=== PATIENT | female | born 1940 | race Caucasian/White ===

== ENCOUNTER 2018-09-19 09:31 | Emergency (ER) | payer MEDICARE ==
[~2018-09-19] VITALS: Ht 157.5 cm; Wt 56.7 kg
[~2018-09-19 09:31] MED LIST: COUMADIN1 MG PO; COUMADIN2 MG PO; DIGOXIN125 MCG PO; DILTIAZEM HCL30 MG PO; LANOXIN250 MC1 PO; LASIX40 MG PO; LEVOTHYROXINE100 MCG PO; LISINOPRIL2.5 MG PO; METFORMIN HCL500 MG PO; METOPROLOL TART25 MG PO; Z.0.COUMADIN2 MG PO; Z.0.METOPROLOL TART2 PO; Z.1.LEVOTHYROXINE100 PO
--- NOTE | 2018-09-19 10:41 | Diagnostic Imaging Report ---
EXAM: CHEST 2 VIEWS, PA and lateral DATE: 09/19/2018 Time stamp on exam: 10:05 AM INDICATION: Atrial fibrillation COMPARISON: None FINDINGS: LINES/TUBES: Triple lead cardiac device noted overlying the left chest. LUNGS: No consolidations or edema. PLEURA: Tiny right pleural effusion. HEART AND MEDIASTINUM: The heart is enlarged. BONES AND SOFT TISSUES: No acute findings. IMPRESSION: Cardiomegaly with adjacent tiny right pleural effusion. Signed by: Dr. Cliff Sainz DO on 09/19/2018 10:38 AM
[2018-09-19 11:19] LABS: BASOPHILS # (AUTO) 0.1 (0.0-0.1); BASOPHILS % 0.6 % (0.0-1.0); EOSINOPHILS # (AUTO) 0.1 (0.0-0.4); EOSINOPHILS % 1.7 % (0.0-6.0); HEMATOCRIT 39.9 % (34.2-44.1); HEMOGLOBIN 13.2 g/dL (12.0-16.0); LYMPHOCYTES # (AUTO) 1.6 (1.0-3.2); LYMPHOCYTES % 19.8 % (18.0-39.1); MEAN CORPUSCULAR HEMOGLOBIN 30.3 pg (28-32); MEAN CORPUSCULAR HGB CONC 33.1 g/dL (31-35); MEAN CORPUSCULAR VOLUME 91.7 fL (81-99); MONOCYTES # (AUTO) 0.8 (0.2-0.8); MONOCYTES % 10.2 % (4.4-11.3); NEUTROPHILS # (AUTO) 5.3 (2.1-6.9); NEUTROPHILS % 67.3 % (38.7-80.0); PLATELET COUNT 203 x10e3/uL (140-360); RED BLOOD COUNT 4.35 x10e6/uL (3.6-5.1); RED CELL DISTRIBUTION WIDTH 13.5 % (11.7-14.4)
[2018-09-19 11:26] LABS: INR 3.27; PROTHROMBIN TIME 34.1 seconds (11.9-14.5)
[2018-09-19 11:27] LABS: PARTIAL THROMBOPLASTIN TIME 42.9 seconds (23.8-35.5)
[2018-09-19 11:35] LABS: ALANINE AMINOTRANSFERASE 23 IU/L (0-55); ALBUMIN/GLOBULIN RATIO 1.2 (0.8-2.0); ALKALINE PHOSPHATASE 68 IU/L (40-150); ANION GAP 11.5 mmol/L (8-16); BLOOD UREA NITROGEN 10 mg/dL (7-26); BUN/CREATININE RATIO 14 (6-25); CALCIUM 9.8 mg/dL (8.4-10.2); CARBON DIOXIDE 29 mmol/L (22-29); CHLORIDE 101 mmol/L (98-107); CREATININE, SERUM 0.73 mg/dL (0.57-1.11); EST GLOMERULAR FILTRATION RATE > 60 ML/MIN (60-); GLUCOSE 249 mg/dL (74-118); POTASSIUM 4.5 mmol/L (3.5-5.1); SODIUM 137 mmol/L (136-145)
[2018-09-19 11:38] LABS: CREATINE KINASE 116 IU/L (29-168)
--- NOTE | 2018-09-19 12:06 | NUR ---
pt resting in bed with no s/s of distress. updated on poc/pending orders.
--- NOTE | 2018-09-19 12:13 | NUR ---
pt updated on pending dc home per dr. devine
[2018-09-19 12:20] VITALS: BP 126/62
== END 2018-09-19 12:36 | disposition home or self-care (01) ==
LOC: ER 09:31
DX: R07.89 Other chest pain (principal); R05 Cough; J20.9 Acute bronchitis, unspecified; I10 Essential (primary) hypertension; I48.91 Unspecified atrial fibrillation; E03.9 Hypothyroidism, unspecified; Z95.810 Presence of automatic (implantable) cardiac defibrillator
CPT/HCPCS: 36415; 71046; 80053; 82550; 82553; 84484; 85025; 85610; 85730; 93005; 99284

== ENCOUNTER → 2018-11-01 | Outpatient (CLI) | payer MEDICARE ==
[~2018-11-01] MED LIST changes: +AMIODARONE HCL200 MG; +FAMOTIDINE20 MG PO; +Guaifenesin/Dextromethorphan NG; +PREDNISONE20 MG PO; +TEMAZEPAM15 MG PO; +TESSALON PERLE100 MG PO; +TOPROL XL25 MG PO; +WARFARIN SODIUM2 MG PO
--- NOTE | 2018-11-01 08:43 | Diagnostic Imaging Report ---
EXAMINATION: CT scan of the chest without contrast. TECHNIQUE: Spiral CT images of the chest were performed from the lung apices to the level of the adrenal glands. No intravenous contrast was administered per referring physician request. Coronal and sagittal reformatted images were obtained. COMPARISON: Chest radiograph 09/19/2018 CLINICAL HISTORY:Dyspnea x3 months DISCUSSION: ABSENCE OF INTRAVENOUS CONTRAST DECREASES SENSITIVITY FOR DETECTION OF FOCAL LESIONS AND VASCULAR PATHOLOGY. LINES/TUBES: Left subclavian approach cardiac device body lies in the subcutaneous tissues of the left chest wall. Leads terminate in the right atrium, right ventricle, and coronary sinus LUNGS AND AIRWAYS: Mild biapical pleural-parenchymal scar. Groundglass opacities with interlobular septal thickening intermixed with areas of relative hyperlucency. Linear opacities in the lung bases, left greater than right, compatible with fibrotic change. 2 mm juxtapleural nodule right upper lobe series 3 image 43. 2 mm groundglass nodule right upper lobe series 3 image 46. 2 mm juxtapleural right lower lobe nodule series 3 image 87. 4 mm solid left apical nodule series 2 image 19. Calcified granuloma left upper lobe series 3 image 33. trachea, mainstem bronchi, and central lobar and segmental bronchi are patent without filling defect. PLEURA: Trace right pleural effusion. No left pleural effusion. No pneumothorax. HEART AND MEDIASTINUM: Visualized portions of the thyroid gland appear normal. The esophagus is patulous. Atherosclerotic calcification of the thoracic aorta, great vessel origins, and [place] coronary arteries. No ectasia or aneurysmal dilatation of the thoracic aorta. Pulmonary outflow tract is of normal caliber. Mild cardiomegaly without pericardial effusion. LYMPH NODES: Mildly prominent bilateral hilar lymph nodes. ABDOMEN: Visualized portions of the liver, spleen, pancreatic tail, and adrenal glands are unremarkable. BONES AND SOFT TISSUES: No osseous destructive lesions. Degenerative disc changes of the thoracic spine. IMPRESSION: Cardiomegaly with groundglass opacities and interlobular septal thickening compatible with interstitial edema. Mildly enlarged hilar lymph nodes are likely reactive. Peripheral and bibasilar probable age-related fibrotic changes. Trace right pleural effusion. Scattered bilateral pulmonary nodules measuring up to 4 mm in the left lung apex. Follow-up CT scan of the chest without contrast may be obtained in one year to assess for stability per Fleischner Society 2017 guidelines. Atherosclerotic vascular disease. Signed by: Dr. Hernán Peters M.D. on 11/01/2018 8:40 AM
== END ==
LOC: CT 07:54
PROVIDERS: ATTEND Internal Medicine
DX: R06.09 Other forms of dyspnea (principal)
CPT/HCPCS: 71250

== ENCOUNTER 2019-01-13 10:13 | Observation (INO) | payer MEDICARE ==
[~2019-01-13] VITALS: Ht 157.5 cm; Wt 57.6 kg
[~2019-01-13 10:13] MED LIST changes: -AMIODARONE HCL200 MG; -FAMOTIDINE20 MG PO; -Guaifenesin/Dextromethorphan NG; -PREDNISONE20 MG PO; -TEMAZEPAM15 MG PO; -TESSALON PERLE100 MG PO; -TOPROL XL25 MG PO; -WARFARIN SODIUM2 MG PO
--- OUTSIDE RECORDS SUMMARY | 2019-01-13 10:16 | XMS REPORT ---
Author Author [facility] Address Unknown Phone Unavailable Care Team Providers Care Lockstitch Shoulder Joiner Name Role Phone SHAWN LOMAS Unavailable Unavailable Tayo STEVENS Unavailable Unavailable Payers Payer Name Policy Type Policy Number Effective Date Expiration Date Problems This patient has no known problems. Allergies, Adverse Reactions, Alerts Allergy Name Allergy Type Status Severity Reaction(s) Onset Date Inactive Date Treating Clinician Comments No Known Contrast Allergies DA Active U 2002-08-21 00:00:00 No Known Drug Allergies DA Active U 2002-08-21 00:00:00 No Known Food Allergies DA Active U 2002-08-21 00:00:00 No Known Other Allergies DA Active U 2002-08-21 00:00:00 No Known Drug Intolerances DA Active U 2001-03-20 00:00:00 Medications This patient has no known medications. Results Test Description Test Time Test Comments Text Results Atomic Results Result Comments CT CHEST WO 2018-11-01 08:30:00 [facility] [address] [place], [place] [address] Patient Name: AMBER CLARK MR #: [id number] : 1940 Age/Sex: 78/F Req #: [id number] Adm Physician: Ordered by: SHAWN LOMAS MD Report #: [id number] Location: [place] Room/Bed: Procedure: [id number] CT/CT CHEST WO Exam Date: 11/01/18 Exam Time: 0815 REPORT STATUS: Signed EXAMINATION: CT scan of the chest without contrast. MEGHANN HNIQUE: Spiral CT images of the chest were performed from the lung apices to the level of the adrenal glands. No intravenous contrast was administered per referring physician request. Coronal and sagittal reformatted images were obtained. COMPARISON: Chest radiograph 09/19/2018 CLINICAL HISTORY:Dyspnea x3 months DISCUSSION: ABSENCE OF INTRAVENOUS CONTRAST DECREASES SENSITIVITY FOR DETECTION OF FOCAL LESIONS AND VASCULAR PATHOLOGY. LINES/TUBES: Left subclavian approach cardiac device body lies in the subcutaneous tissues of the left chest wall. Leads terminate in the right atrium, right ventricle, and coronary sinus LUNGS AND AIRWAYS: Mild biapical pleural-parenchymal scar. Groundglass opacities with interlobular septal thickening intermixed with areas of relative hyperlucency. Linear opacities in the lung bases, left greater than right, compatible with fibrotic change. 2 mm juxtapleural nodule right upper lobe series 3 image 43. 2 mm groundglass nodule right upper lobe series 3 image 46. 2 mm juxtapleural right lower lobe nodule series 3 image 87. 4 mm solid left apical nodule series 2 image 19. Calcified granuloma left upper lobe series 3 image 33. trachea, mainstem bronchi, and central lobar and segmental bronchi are patent without filling defect. PLEURA: Trace right pleural effusion. No left pleural effusion. No pneumothorax. HEART AND MEDIASTINUM: Visualized portions of the thyroid gland appear normal. The esophagus is patulous. Atherosclerotic calcification of the thoracic aorta, great vessel origins, and [place] coronary arteries. No ectasia or aneurysmal dilatation of the thoracic aorta. Pulmonary outflow tract is of normal caliber. Mild cardiomegaly without pericardial effusion. LYMPH NODES: Mildly prominent bilateral hilar lymph nodes. ABDOMEN: Visualized portions of the liver, spleen, pancreatic tail, and adrenal glands are unremarkable. BONES AND SOFT TISSUES: No osseous destructive lesions. Degenerative disc changes of the thoracic spine. IMPRESSION: Cardiomegaly with groundglass opacities and interlobular septal thickening compatible with interstitial edema. Mildly enlarged hilar lymph nodes are likely reactive. Peripheral and bibasilar probable age- related fibrotic changes. Trace right pleural effusion. Scattered bilateral pulmonary nodules measuring up to 4 mm in the left lung apex. Follow-up CT scan of the chest without contrast may be obtained in one year to assess for stability per Fleischner Society 2017 guidelines. Atherosclero tic vascular disease. Signed by: Dr. Bassem Hsu M.D. on 11/01/2018 8:40 AM Dictated By: BASSEM HSU MD 9 Transcribed By: NETO on 11/01/18839 COPY TO: SHAWN LOMAS MD CHEST 2 VIEWS 2018-09-19 10:37:00 [place] [address] Patient Name: AMBER CLARK MR #: [id number] : 1940 Age/Sex: 78/F Req #: [id number] Adm Physician: Ordered by: BUSTER STEVENS MD Report #: [id number] Location: ER Room/Bed: Procedure: [id number] DX/CHEST 2 VIEWS Exam Date: 09/19/18 Exam Time: 1018 REPORT STATUS: Signed EXAM: CHEST 2 VIEWS, PA and lateral DATE: 09/19/2018 Time stamp on exam: 10:05 AM INDICATION: Atrial fibrillation COMPARISON: None FINDINGS: LINES/TUBES: Triple lead cardiac device noted overlying the left chest. LUNGS: No consolidations or edema. PLEURA: Tiny right pleural effusion. HEART AND MEDIASTINUM: The heart is enlarged. BONES AND SOFT TISSUES: No acute findings. IMPRESSION: Cardiomegaly with adjacent tiny right pleural effusion. Signed by: Dr. Tiffany Sainz DO on 09/19/2018 10:38 AM Dictated By: TIFFANY SAINZ DO 1038 Transcribed By: NETO on 09/19/18 1038 COPY TO: BUSTER STEVENS MD SCR MAMM BILATERAL MARIA LUZ CAD DIGITAL 2018-06-06 11:55:17 - SCR MAMM BILATERAL MARIA LUZ CAD DIGITALBILATERAL DIGITAL SCREENING MAMMOGRAM 3D/2D WITH CAD: 06/06/2018CLINICAL: Asymptomatic. Digital breast tomosynthesis was performed in addition to routine CC and MLO views. Current mammographic images were evaluated by either a [employer] M-Vu or a [employer] ImageChecker CAD (computer aided detection system). Comparison is made to exams dated 03/27/2017 mammogram, mammogram, and 10/16/2014 mammogram - [facility]-. The tissue of both breasts is heterogeneously dense. This may lower the sensitivity of mammography. There are benign vascular calcifications in both breasts. No suspicious mass, architectural distortion, malignant type calcification, or lymph node abnormality detected. Breast architecture is stable compared to prior exams.IMPRESSION: BENIGNThere is no mammographic evidence of malignancy. Resume annual screening mammography in one year. Justin Fernandez M.D. ss/penrad:06/06/2018 11:55:17 Patching Machine Operator: Meryl MCGRAW, [facility]-FWletter sent: BIRADS 1-2 Normal Mammogram BI-RADS: 2 Benign
[2019-01-13 10:56] LABS: BASOPHILS # (AUTO) 0.1 (0.0-0.1); BASOPHILS % 0.6 % (0.0-1.0); EOSINOPHILS # (AUTO) 0.2 (0.0-0.4); EOSINOPHILS % 2.6 % (0.0-6.0); HEMATOCRIT 38.7 % (34.2-44.1); HEMOGLOBIN 12.5 g/dL (12.0-16.0); LYMPHOCYTES # (AUTO) 1.8 (1.0-3.2); LYMPHOCYTES % 20.5 % (18.0-39.1); MEAN CORPUSCULAR HEMOGLOBIN 29.8 pg (28-32); MEAN CORPUSCULAR HGB CONC 32.3 g/dL (31-35); MEAN CORPUSCULAR VOLUME 92.4 fL (81-99); MONOCYTES # (AUTO) 0.7 (0.2-0.8); MONOCYTES % 8.5 % (4.4-11.3); NEUTROPHILS # (AUTO) 5.8 (2.1-6.9); NEUTROPHILS % 67.4 % (38.7-80.0); PLATELET COUNT 204 x10e3/uL (140-360); RED BLOOD COUNT 4.19 x10e6/uL (3.6-5.1); RED CELL DISTRIBUTION WIDTH 12.9 % (11.7-14.4)
[2019-01-13 11:21] LABS: ALANINE AMINOTRANSFERASE 21 IU/L (0-55); ALBUMIN 3.7 g/dL (3.5-5.0); ALBUMIN/GLOBULIN RATIO 1.2 (0.8-2.0); ALKALINE PHOSPHATASE 56 IU/L (40-150); ANION GAP 14.3 mmol/L (8-16); BLOOD UREA NITROGEN 16 mg/dL (7-26); BUN/CREATININE RATIO 18 (6-25); CALCIUM 9.1 mg/dL (8.4-10.2); CARBON DIOXIDE 28 mmol/L (22-29); CHLORIDE 98 mmol/L (98-107); CREATINE KINASE 105 IU/L (29-168); CREATININE, SERUM 0.88 mg/dL (0.57-1.11); EST GLOMERULAR FILTRATION RATE > 60 ML/MIN (60-); GLUCOSE 368 mg/dL (74-118); POTASSIUM 4.3 mmol/L (3.5-5.1); SODIUM 136 mmol/L (136-145)
[2019-01-13 11:30] LABS: BILIRUBIN,URINE NEGATIVE (NEGATIVE); CLARITY,URINE CLEAR (CLEAR); COLOR,URINE YELLOW (YELLOW); KETONES,URINE NEGATIVE (NEGATIVE); LEUKOCYTE ESTERASE ,URINE NEGATIVE (NEGATIVE); NITRITE,URINE NEGATIVE (NEGATIVE); PROTEIN,URINE DIPSTICK TRACE (NEGATIVE); URINE UROBILINOGEN 0.2 mg/dL (0.2 - 1)
--- NOTE | 2019-01-13 11:32 | Diagnostic Imaging Report ---
EXAMINATION: CHEST 2 VIEWS INDICATION: Shortness of breath COMPARISON: Chest CT of 11/01/2018, chest radiograph of 09/19/2018 FINDINGS: LINES/TUBES:Left chest pacemaker device with leads in unchanged position. LUNGS:The lungs are moderately inflated. Mild biapical pleural thickening. Mild pulmonary interstitial edema. Mild subsegmental atelectasis at the left lung base. PLEURA:Trace bilateral pleural effusions. No pneumothorax. MEDIASTINUM:Cardiomediastinal silhouette is stably enlarged. Atherosclerotic calcifications of the thoracic aorta. BONES/SOFT TISSUES:No acute osseous injury. ABDOMEN:No free air under the diaphragm. IMPRESSION: Mild pulmonary interstitial edema and cardiomegaly. Trace bilateral pleural effusions. Mild subsegmental atelectasis at the left lung base. Signed by: Octavio Rowe MD on 01/13/2019 11:29 AM
[2019-01-13 11:42] LABS: BACTERIA,URINE RARE /HPF; EPITHELIAL CELLS,URINE FEW /LPF; RBC,URINE 0-5 /HPF (0-5); WBC,URINE (MAN) 0-5 /HPF (0-5)
[2019-01-13] MEDS ORDERED: INSULIN REGULAR, HUMAN 100 UNIT/1 ML 3ML VIAL SQ ONE (11:45)
[2019-01-13 11:50] LABS: INR 6.22; PROTHROMBIN TIME 55.9 seconds (11.9-14.5)
[2019-01-13 11:51] LABS: PARTIAL THROMBOPLASTIN TIME 56.2 seconds (23.8-35.5)
[2019-01-13] MEDS ORDERED: DEXTROSE 50% SYRINGE 50 ML IV PRN (12:15)
[2019-01-13] MEDS: INSULIN REGULAR, HUMAN 100 UNIT/1 ML 3ML VIAL SQ SCH ×3 (12:24→20:29)
[2019-01-13] MEDS ORDERED: PHYTONADIONE 10 MG/ML AMP SC ONE (12:30)
--- NOTE | 2019-01-13 12:39 | NUR ---
IV INFILTRATED AND DC'D INTACT. ATTEMPTS X2 UNSUCCESSFUL.
[2019-01-13] MEDS: ASPIRIN 325 MG TAB EC PO SCH (13:00)
--- NOTE | 2019-01-13 21:17 | NUR ---
REPOPRT ATTEMPTED Addendum: 01/13/19 at 2125 by AMCDONALD 1ST ATTEMPT AT REPORT WAS 2017
[2019-01-13 22:25] VITALS: BP 129/63
--- NOTE | 2019-01-13 22:25 | NUR ---
Patient arrived from ER via stretcher and was able to ambulate independently without assistance. Respirations are equal and unlabored, currently denies any SOB. Patient in NAD. POC discussed. She changed into own pajamas. Pt instructed to call for assistance as needed and verbalized understanding. Call bunch within reach.
[2019-01-13 22:30] VITALS: BP 129/63
[2019-01-13 22:44] VITALS: BP 129/63
[2019-01-13] MEDS ORDERED: TEMAZEPAM15 MG PO (23:23)
[2019-01-13] MEDS ORDERED: LISINOPRIL2.5 MG PO (23:23)
[2019-01-13 23:38] VITALS: BP 108/59
[2019-01-14] VITALS (8 sets, daily range): BP systolic 90–117; BP diastolic 53–67
--- NOTE | 2019-01-14 01:21 | NUR ---
Patient is resting in bed without any complaints voiced. Call bunch within reach.
--- NOTE | 2019-01-14 04:58 | NUR ---
H&P cc: sob HPI: 78yoF, PCP Dr.J. Cowan, developed sob and cough for few weeks; no cp. PMH: Systolic CHF, PAF, DM2, COPD, hypothyroidism, HTN, HLD, Nicotine dependence in remission, chronic resp failure on 2L/Min O2 at home PSHx: PPM Allergies; see emr Fh/SH; 30pk yrs; Meds; see MAR ROS: no f/c/s/N/V/D/LOTT/cp/vision changes/skin rash/back pain v/s; revd PE tired appearing anicteric ns1s2 mod bs soft nt nd no e/t a&ox3; guzmán skin dry n. affect labs/med; revd A/P: AECOPD Chronic resp failure Systolic CHF PAF DM2 Supratherapeutic inr Hypothyroidism HTN HLD PLAN: O2; Nebs; abx; Monitor fluid balance; HR controlled; Hba1c/lipids Prop: Mack Baxter MD, PhD.
[2019-01-14] MEDS ORDERED: ALBUTEROL/IPRATROPIUM 3 ML NEB NEB PRN (07:15)
[2019-01-14] MEDS: INSULIN REGULAR, HUMAN 100 UNIT/1 ML 3ML VIAL SQ SCH ×4 (07:56→20:41)
[2019-01-14] MEDS: LEVOTHYROXINE SODIUM 100 MCG TAB PO SCH (07:56)
[2019-01-14] MEDS: FAMOTIDINE 20 MG TAB PO SCH ×2 (07:56→16:54)
[2019-01-14 07:59] LABS: INR 2.67; PROTHROMBIN TIME 29.2 seconds (11.9-14.5)
[2019-01-14] MEDS ORDERED: POTASSIUM CHLORIDE 20 MEQ TAB CR PO PRN (08:15)
[2019-01-14 08:16] LABS: CREATINE KINASE MB 2.3 ng/mL (0-5.0)
[2019-01-14] MEDS ORDERED: FUROSEMIDE INJ 10 MG/ML 4 ML VIAL IV SCH ×2 (09:00)
[2019-01-14] MEDS ORDERED: FUROSEMIDE 40 MG TAB PO SCH (09:00)
[2019-01-14] MEDS: LISINOPRIL 2.5 MG TAB PO SCH (09:20)
[2019-01-14] MEDS: ASPIRIN 325 MG TAB EC PO SCH (09:20)
[2019-01-14] MEDS: METHYLPREDNISOLONE SOD SUCC 40 MG/ML VIAL 1ML IV SCH ×2 (09:20→20:39)
[2019-01-14] MEDS: HEPARIN SOD (PORCINE) 5,000 UNIT/ML VIAL SC SCH ×2 (09:21→20:40)
--- NOTE | 2019-01-14 15:41 | Consultation ---
DATE OF CONSULTATION: Pulmonary Consultation Patient of Dr. Sae Cowan, Dr. Cowart, and . HISTORY OF PRESENT ILLNESS: Charming, but unfortunate 78-year-old woman with a history of chronic atrial fibrillation, sick sinus syndrome with pacemaker, congestive heart failure, presumably cardiomyopathy, admitted with increasing shortness of breath. ALLERGIES: SHE IS ALLERGIC TO LEVAQUIN. MEDICATIONS: Include Lasix, Levoxyl, lisinopril, and Restoril. SOCIAL HISTORY: Ex-smoker, quit 30 years ago, smoked a pack a day, however, for 30 years. PAST SURGICAL HISTORY: Pacemaker has been implanted. No operations. FAMILY HISTORY: Noncontributory. PHYSICAL EXAMINATION: GENERAL: A well-developed white female, anxious. VITAL SIGNS: Temperature 97.2, pulse 70 and irregular, respirations 18, and blood pressure 117/67. HEAD: Normocephalic, atraumatic. EYES: Extraocular movements intact. LUNGS: Few rales bilaterally. HEART: Regular rhythm. ABDOMEN: Obese. EXTREMITIES: Nonedematous. IMPRESSION: Congestive heart failure. PLAN: Therapy of heart failure as per Dr. Cowart. Diuresis, afterload reduction, rate control. Recent CAT scan was consistent with interstitial edema, congestive heart failure. Pulmonary functions have revealed restrictive pattern. MD VICTORIA Pate/ABHINAVL /[id number]
--- NOTE | 2019-01-14 15:56 | Consultation ---
DATE OF CONSULTATION: 01/14/2019 Cardiology Consultation REQUESTING PHYSICIAN: Mack Baxter MD REASON FOR CONSULTATION: Congestive heart failure. HISTORY OF PRESENT ILLNESS: This is a 78-year-old woman with history of chronic systolic heart failure, status post BiV ICD, atrial fibrillation, chronic bronchitis, diabetes mellitus, hypothyroidism, who presents with complaints of shortness of breath. The patient reports she has had progressive shortness of breath since August with dyspnea on exertion with walking to the kitchen. She does endorse symptoms suggestive of orthopnea, but denies any chest pain, edema, or PND. REVIEW OF SYSTEMS: Negative except as per HPI. PAST MEDICAL HISTORY: 1. Chronic systolic heart failure, status post BiV ICD. 2. Atrial fibrillation. 3. Diabetes mellitus. 4. Hypothyroidism. 5. Chronic bronchitis. PAST SURGICAL HISTORY: Denies. SOCIAL HISTORY: Previously smoked one pack a day for 30 years, but quit 30 years ago. No alcohol or illicit drugs. FAMILY HISTORY: Noncontributory to current illness. ALLERGIES: LEVOFLOXACIN. MEDICATIONS: Please see medication list. PHYSICAL EXAMINATION: VITAL SIGNS: Temperature 96 degrees, pulse 97, respiratory rate 18, blood pressure 90/55, and oxygen saturation 97% on 2 L nasal cannula. GENERAL: Elderly woman, well developed, well nourished, in no acute distress. HEENT: Normocephalic, atraumatic. Pupils are equal. No scleral icterus. NECK: Supple. No thyromegaly or cervical lymphadenopathy. No carotid bruits. LUNGS: Clear to auscultation bilaterally. No wheezes or crackles , CARDIOVASCULAR: Normal rate, regular rhythm. No murmur. Normal S1, S2. ABDOMEN: Soft, nontender. EXTREMITIES: No edema. LABORATORY DATA: Sodium 136, potassium 4.3, chloride 98, CO2 of 28, BUN 16, and creatinine 0.88. Troponin 0.019. BNP 397.6. WBC 8.54, hemoglobin 12.5, hematocrit 38.7, and platelets 204. INR 2.67. Chest x-ray mild pulmonary interstitial edema and cardiomegaly. Trace bilateral pleural effusions. Mild subsegmental atelectasis at the left lung base. EKG, V-paced with PVCs. IMPRESSION: 1. Dwysm-rk-dwqiiwd systolic heart failure, last LVEF 40% to 45% at the office earlier this year. 2. Status post BiV ICD. 3. Atrial fibrillation. 4. Diabetes mellitus. 5. Hypothyroidism. 6. Chronic bronchitis. Continue home cardiac medications specifically continue low-dose lisinopril. Place the patient on intravenous diuretics. Watch creatinine closely. Monitor and replete electrolytes. Maintain the patient on telemetry while admitted. Resume the patient's warfarin as INR is now therapeutic. If necessary, warfarin can be held if procedures are planned. Thank you for this consult. We will continue to follow. Pamela Zhang MD ABS/MODL /[id number]
[2019-01-14] MEDS: FUROSEMIDE INJ 10 MG/ML 4 ML VIAL IV SCH (16:54)
[2019-01-14] MEDS: WARFARIN SOD 2 MG TAB PO SCH (16:55)
--- NOTE | 2019-01-14 17:21 | NUR ---
Dr Baxter notified of elevated sugar. extra 8 units added to evening dose for a total of 20 units.
[2019-01-14] MEDS ORDERED: WARFARIN SODIUM2 MG PO (19:24)
[2019-01-14] MEDS ORDERED: DIGOXIN125 MCG PO (19:24)
[2019-01-14] MEDS: TEMAZEPAM 15 MG CAP PO SCH (22:00)
[2019-01-15] VITALS (8 sets, daily range): BP systolic 94–139; BP diastolic 50–82
[2019-01-15] MEDS: LEVOTHYROXINE SODIUM 100 MCG TAB PO SCH (05:31)
--- NOTE | 2019-01-15 06:35 | NUR ---
IM- progress gillian O/N no events ROS: no f/c/s/N/V/D/LOTT/cp/vision changes/skin rash/back pain v/s; revd PE tired appearing anicteric ns1s2 mod bs soft nt nd no e/t a&ox3; guzmán skin dry n. affect labs/med; revd A/P: AECOPD Chronic resp failure Systolic CHF PAF DM2 Supratherapeutic inr Hypothyroidism HTN HLD PLAN: O2; Nebs; abx; Monitor fluid balance; HR controlled; Hba1c/lipids Prop: 01/15 supportive care; Hba1c/LDL ; inr improving; check inr. Mack Baxter MD, PhD.
[2019-01-15] MEDS ORDERED: GUAIFENESIN/DEXTROMETHORPHAN LIQD 5 ML UDC NG PRN (06:45)
[2019-01-15] MEDS ORDERED: ALBUTEROL/IPRATROPIUM 3 ML NEB NEB PRN (06:45)
[2019-01-15] MEDS: INSULIN REGULAR, HUMAN 100 UNIT/1 ML 3ML VIAL SQ SCH ×4 (07:47→20:52)
[2019-01-15] MEDS: HEPARIN SOD (PORCINE) 5,000 UNIT/ML VIAL SC SCH (07:47)
[2019-01-15] MEDS ORDERED: AMIODARONE HCL200 MG (07:48)
[2019-01-15] MEDS: METHYLPREDNISOLONE SOD SUCC 40 MG/ML VIAL 1ML IV SCH ×2 (08:54→20:52)
[2019-01-15] MEDS: FAMOTIDINE 20 MG TAB PO SCH ×2 (08:55→15:46)
[2019-01-15] MEDS: BENZONATATE 100 MG CAP PO SCH ×3 (08:55→20:52)
[2019-01-15] MEDS: LISINOPRIL 2.5 MG TAB PO SCH (08:55)
[2019-01-15] MEDS: FUROSEMIDE INJ 10 MG/ML 4 ML VIAL IV SCH ×2 (08:55→18:05)
[2019-01-15] MEDS: ASPIRIN 325 MG TAB EC PO SCH (08:55)
[2019-01-15 09:10] LABS: INR 1.53
--- NOTE | 2019-01-15 10:18 | Diagnostic Imaging Report ---
EXAM: CHEST 2 VIEWS DATE: 01/15/2019 8:45 AM INDICATION: Shortness of breath COMPARISON: 01/13/2019 FINDINGS: Left-sided multilead pacing device identified in stable position. The trachea is midline. There is blunting of the right costophrenic angle and a trace right pleural effusion is possible. There is no evidence for new large focal consolidation or pneumothorax. The cardiomediastinal silhouette is stable in appearance. No acute osseous abnormalities identified. IMPRESSION: No acute cardiopulmonary process or significant interval change identified from 01/13/2019. Signed by: Dr. Rodger Hermosillo MD on 01/15/2019 10:15 AM
[2019-01-15] MEDS: WARFARIN SOD 2 MG TAB PO SCH (18:05)
[2019-01-15 18:50] LABS: ANION GAP 15.9 mmol/L (8-16); CALCIUM 9.8 mg/dL (8.4-10.2); CREATININE, SERUM 1.01 mg/dL (0.57-1.11); POTASSIUM 3.9 mmol/L (3.5-5.1)
--- NOTE | 2019-01-15 19:30 | NUR ---
Patient is awake and alert visiting with family. Patient states she feels better today, denies any CP or SOB at this time. Reminded patient of strict I&O's and verbalized understanding. Call bunch within reach.
[2019-01-15] MEDS: TEMAZEPAM 15 MG CAP PO SCH (23:15)
--- NOTE | 2019-01-15 23:24 | Progress Note ---
DATE: 01/15/2019 Cardiology Progress Note SUBJECTIVE: The patient denies chest pain or shortness of breath. OBJECTIVE: VITAL SIGNS: Temperature 98 degrees, pulse 89, respiratory rate 20, blood pressure 116/62, and oxygen saturation 98% on room air. GENERAL: Awake, alert, in no acute distress. LUNGS: Clear to auscultation bilaterally. No wheezes or crackles. CARDIOVASCULAR: Normal rate, regular rhythm. No murmur. Normal S1, S2. ABDOMEN: Soft, nontender. EXTREMITIES: No edema. CARDIAC MEDICATIONS: Warfarin 2 mg p.o. daily, furosemide 40 mg IV b.i.d., Lexapro 2.5 mg p.o. daily, aspirin 325 mg p.o. daily, levothyroxine 100 mcg p.o. daily. LABORATORY DATA: Sodium 137, potassium 3.9, chloride 98, CO2 of 27, BUN 26, creatinine 1.01. Chest x-ray, no acute cardiopulmonary process or significant interval change. EKG, V-paced with PVCs. IMPRESSION: 1. Iaczo-jt-ofkxnot systolic heart failure. Last LVEF 40% to 45% at the office earlier this year. 2. Status post BiV ICD. 3. Atrial fibrillation. 4. Diabetes mellitus. 5. Hypothyroidism. 6. Chronic bronchitis. RECOMMENDATIONS: Continue current cardiac medications. Add metoprolol succinate given known systolic heart failure. Check BNP and basic metabolic panel in the morning. As she is clinically improved, she may be discharged home to follow up in the office for further diuresis as needed. Monitor creatinine. We will add Lasix to monitor and replete electrolytes. Maintain the patient on telemetry. Keep the patient on current dose of warfarin, currently subtherapeutic due to administration of vitamin K. Thank you for this consult. We will continue to follow. Pamela Zhang MD ABS/MODL /[id number]
[2019-01-16 00:09] VITALS: BP 131/65
[2019-01-16 04:44] VITALS: BP 121/55
[2019-01-16 05:35] LABS: BASOPHILS % 0.1 % (0.0-1.0); HEMATOCRIT 37.7 % (34.2-44.1); HEMOGLOBIN 12.5 g/dL (12.0-16.0); LYMPHOCYTES # (AUTO) 1.3 (1.0-3.2); LYMPHOCYTES % 8.3 % (18.0-39.1); MEAN CORPUSCULAR HEMOGLOBIN 29.6 pg (28-32); MEAN CORPUSCULAR HGB CONC 33.2 g/dL (31-35); MEAN CORPUSCULAR VOLUME 89.1 fL (81-99); MONOCYTES # (AUTO) 0.4 (0.2-0.8); MONOCYTES % 2.6 % (4.4-11.3); PLATELET COUNT 200 x10e3/uL (140-360); RED BLOOD COUNT 4.23 x10e6/uL (3.6-5.1); RED CELL DISTRIBUTION WIDTH 12.7 % (11.7-14.4)
[2019-01-16] MEDS ORDERED: TESSALON PERLE100 MG PO (05:49)
[2019-01-16] MEDS ORDERED: TOPROL XL25 MG PO (05:49)
[2019-01-16] MEDS ORDERED: FAMOTIDINE20 MG PO (05:49)
[2019-01-16] MEDS ORDERED: Guaifenesin/Dextromethorphan NG (05:49)
[2019-01-16] MEDS ORDERED: PREDNISONE20 MG PO (05:50)
--- NOTE | 2019-01-16 05:51 | NUR ---
D/C summary Principal dx: AECOPD Secondary Dx: Chronic resp failure Systolic CHF PAF DM2 Supratherapeutic inr Hypothyroidism HTN HLD PLAN: O2; Nebs; abx; Monitor fluid balance; HR controlled; Hba1c/lipids Prop: 01/15 supportive care; Hba1c/LDL ; inr improving; check inr. d/c home f/u pcp 1 week and Your mechanical maintenance 1 week; 2 weeks stable d/c>35mins Mack Baxter MD, PhD.
[2019-01-16] MEDS: LEVOTHYROXINE SODIUM 100 MCG TAB PO SCH (06:00)
[2019-01-16 06:06] LABS: ANION GAP 14.8 mmol/L (8-16); BLOOD UREA NITROGEN 22 mg/dL (7-26); BUN/CREATININE RATIO 26 (6-25); CALCIUM 9.5 mg/dL (8.4-10.2); CARBON DIOXIDE 29 mmol/L (22-29); CHLORIDE 98 mmol/L (98-107); CREATININE, SERUM 0.84 mg/dL (0.57-1.11); EST GLOMERULAR FILTRATION RATE > 60 ML/MIN (60-); GLUCOSE 262 mg/dL (74-118); POTASSIUM 3.8 mmol/L (3.5-5.1); SODIUM 138 mmol/L (136-145)
--- NOTE | 2019-01-16 07:08 | NUR ---
Walking rounds done and report given. Call bunch within reach.
--- NOTE | 2019-01-16 07:15 | NUR ---
Rcvd patient in report this am. Patient is asleep in bed at this time. No s/s of distress noted
[2019-01-16 07:32] VITALS: BP 107/67
[2019-01-16] MEDS: INSULIN REGULAR, HUMAN 100 UNIT/1 ML 3ML VIAL SQ SCH (08:33)
[2019-01-16] MEDS ORDERED: METOPROLOL SUCCINATE 25 MG TAB XL PO SCH (09:00)
[2019-01-16] MEDS ORDERED: PREDNISONE 20 MG TAB PO SCH (09:00)
[2019-01-16] MEDS: BENZONATATE 100 MG CAP PO SCH (09:19)
[2019-01-16] MEDS: FAMOTIDINE 20 MG TAB PO SCH (09:19)
[2019-01-16] MEDS: FUROSEMIDE INJ 10 MG/ML 4 ML VIAL IV SCH (09:19)
[2019-01-16] MEDS: ASPIRIN 325 MG TAB EC PO SCH (09:19)
[2019-01-16] MEDS: LISINOPRIL 2.5 MG TAB PO SCH (09:20)
[2019-01-16] MEDS ORDERED: LASIX40 MG PO (11:07)
[2019-01-16 11:26] VITALS: BP 137/64
--- NOTE | 2019-01-16 11:30 | NUR ---
IV removed at this time from left wrist. Pressure dressing applied
[2019-01-16 11:31] VITALS: BP 137/64
--- NOTE | 2019-01-16 11:43 | NUR ---
Patient discharged from facility to home. Patient assisted out via staff. Reviewed all discharge paperwork, follow up appts and RX's given. Education provided regarding coumadin and diet. Patient verbalized understanding
--- NOTE | 2019-01-16 11:49 | Diagnostic Imaging Report ---
CT of the chest, high-resolution, without contrast, 01/16/2019. History: CHF. Comparison: 11/01/2018. Technique: Multidetector CT scanning of the chest was performed from the level of the apices to the upper abdomen without contrast. Thin collimation scanning during the inspiratory and expiratory phases as well as in the prone position was performed. Sagittal and coronal multiplanar reformations were obtained. RADIATION DOSE: Total DLP: 797 mGy*cm Dose modulation, iterative reconstruction, and/or weight based adjustment of the mA/kV was utilized to reduce the radiation dose to as low as reasonably achievable. Discussion: Evaluation is limited without IV contrast. Chest: A left subclavian AICD is present. The heart is enlarged. The aorta and pulmonary vessels are normal in size. The thyroid is unremarkable. Scattered subcentimeter mediastinal and hilar nodes are unchanged. The central airways are patent. There is biapical pleural thickening with mild bilateral upper lobe scarring. Subsegmental atelectasis and scattered areas of peripheral scarring are present in both lung bases. A small right pleural effusion is present. Scattered tiny noncalcified pulmonary nodules are unchanged, measuring up to 4 mm in the left apex. Expiration scan demonstrates patchy areas of mild air trapping bilaterally. There is no evidence of consolidation, bronchiectasis, honeycombing, or cysts. Limited evaluation of the upper abdomen shows normal adrenal glands. Bones and soft tissues: No acute abnormality. Degenerative changes are present throughout the thoracic spine. IMPRESSION: No acute abnormality. Cardiomegaly, small right pleural effusion, stable tiny pulmonary nodules, and stable mild fibrotic changes. Signed by: Yasmani Simmons on 01/16/2019 11:46 AM
== END 2019-01-16 11:43 | disposition home or self-care (01) ==
LOC: ER 10:13 → ERHOLD 13:43 → IMCU 22:34
PROVIDERS: ADMIT Internal Medicine; ATTEND Internal Medicine
DX: J44.1 Chronic obstructive pulmonary disease with (acute) exacerbation (principal); I11.0 Hypertensive heart disease with heart failure; I50.22 Chronic systolic (congestive) heart failure; I48.0 Paroxysmal atrial fibrillation; Z79.01 Long term (current) use of anticoagulants; E11.9 Type 2 diabetes mellitus without complications; E03.9 Hypothyroidism, unspecified; E78.5 Hyperlipidemia, unspecified; R79.1 Abnormal coagulation profile
CPT/HCPCS: 36415 ×4; 71046 ×2; 71250; 80048 ×2; 80053; 80061; 81001; 82550 ×2; 82553 ×2; 82948 ×4; 83036; 83735; 83880 ×2; 84443; 84484 ×2; 85025 ×2; 85610 ×3; 85730; 93005; 94640; 97116; 97161; 99284; G0378 ×4; J1644; J1940 ×4; J2920 ×2; J3430; J7512

== ENCOUNTER → 2019-06-04 | Outpatient (CLI) | payer MEDICARE ==
[~2019-06-04] MED LIST changes: +AMIODARONE HCL200 MG; +FAMOTIDINE20 MG PO; +Guaifenesin/Dextromethorphan NG; +PREDNISONE20 MG PO; +TEMAZEPAM15 MG PO; +TESSALON PERLE100 MG PO; +TOPROL XL25 MG PO; +WARFARIN SODIUM2 MG PO
--- NOTE | 2019-06-04 11:08 | Diagnostic Imaging Report ---
Chest, 2 views, 06/04/2019. History: Shortness of breath. Comparison: 01/15/2019. Findings: The cardiomediastinal silhouette and pulmonary vasculature are prominent. There is biapical pleural thickening. There is dense opacification of the right mid and lower lung with complete obscuration of the right heart border and hemidiaphragm, with blunting of the right costophrenic sulcus. Linear opacities are present in the left lung base. There is no left consolidation or effusion. Left subclavian biventricular AICD is unchanged in appearance. There are no acute osseous or soft tissue abnormalities. Impression: Mild cardiomegaly, vascular congestion, and increased right lower lobe atelectasis/effusion. Signed by: Yasmani Simmons on 06/04/2019 11:06 AM
== END ==
LOC: RAD 10:40
PROVIDERS: ATTEND Internal Medicine
DX: R06.02 Shortness of breath (principal)
CPT/HCPCS: 71046

== ENCOUNTER 2020-11-05 11:33 | Emergency (ER) | payer MEDICARE ==
[~2020-11-05] VITALS: Ht 157.5 cm; Wt 57.6 kg
[2020-11-05] MEDS ORDERED: SODIUM CHLORIDE 0.9% 1000ML 250 ML IV STA (11:54)
[2020-11-05] MEDS ORDERED: ONDANSETRON HCL INJ 2MG/ML 2ML 2 MG/ML VIAL IV STA (11:54)
[2020-11-05] MEDS ORDERED: DICYCLOMINE HCL 20 MG/2 ML VIAL IM ONE (12:00)
[2020-11-05 12:12] LABS: BASOPHILS % 0.2 % (0.0-1.0); EOSINOPHILS % 0.2 % (0.0-6.0); HEMATOCRIT 36.5 % (34.2-44.1); HEMOGLOBIN 11.8 g/dL (12.0-16.0); LYMPHOCYTES # (AUTO) 1.6 (1.0-3.2); LYMPHOCYTES % 11.9 % (18.0-39.1); MEAN CORPUSCULAR HEMOGLOBIN 29.9 pg (28-32); MEAN CORPUSCULAR HGB CONC 32.3 g/dL (31-35); MEAN CORPUSCULAR VOLUME 92.4 fL (81-99); MONOCYTES # (AUTO) 1.4 (0.2-0.8); MONOCYTES % 10.8 % (4.4-11.3); NEUTROPHILS # (AUTO) 10.1 (2.1-6.9); NEUTROPHILS % 76.4 % (38.7-80.0); PLATELET COUNT 150 x10e3/uL (140-360); RED BLOOD COUNT 3.95 x10e6/uL (3.6-5.1); RED CELL DISTRIBUTION WIDTH 13.8 % (11.7-14.4)
[2020-11-05 12:43] LABS: ALBUMIN 3.4 g/dL (3.5-5.0); ALBUMIN/GLOBULIN RATIO 1.1 (0.8-2.0); ANION GAP 15.1 mmol/L (8-16); CALCIUM 8.6 mg/dL (8.4-10.2); CREATININE, SERUM 1.07 mg/dL (0.57-1.11); POTASSIUM 3.1 mmol/L (3.5-5.1)
[2020-11-05] MEDS ORDERED: IOPAMIDOL 370 MG/ML 200 ML INFUS..BTL INJ ONE (13:49)
[2020-11-05] MEDS ORDERED: SODIUM CHLORIDE 0.9% 50ML 50 ML ONE (13:49)
[2020-11-05] MEDS ORDERED: AUGMENTIN 875-1 EACH PO (14:19)
[2020-11-05] MEDS ORDERED: POTASSIUM CHLORIDE 20 MEQ TAB CR PO ONE (14:30)
== END 2020-11-05 15:05 | disposition home or self-care (01) ==
LOC: ER 11:54
DX: R14.0 Abdominal distension (gaseous) (principal); A09 Infectious gastroenteritis and colitis, unspecified; I10 Essential (primary) hypertension; E11.9 Type 2 diabetes mellitus without complications; I50.9 Heart failure, unspecified; I48.91 Unspecified atrial fibrillation; I25.10 Atherosclerotic heart disease of native coronary artery without angina pectoris; E03.9 Hypothyroidism, unspecified; Z95.810 Presence of automatic (implantable) cardiac defibrillator
CPT/HCPCS: 36415; 74177; 80053; 85025; 99284; J0500; J2405; J7030; Q9967

== ENCOUNTER 2022-07-12 09:39 | Inpatient (IN) | payer MEDICARE ==
[~2022-07-12] VITALS: Ht 157.5 cm; Wt 57.6 kg
[~2022-07-12 09:39] MED LIST changes: +AUGMENTIN 875-1 EACH PO
[2022-07-12] MEDS ORDERED: SODIUM CHLORIDE 0.9% 1000ML 1,000 ML IV SCH (10:00)
[2022-07-12 10:02] LABS: BASOPHILS # (AUTO) 0.1 (0.0-0.1); BASOPHILS % 0.6 % (0.0-1.0); EOSINOPHILS % 0.1 % (0.0-6.0); HEMATOCRIT 34.7 % (34.2-44.1); LYMPHOCYTES # (AUTO) 1.2 (1.0-3.2); LYMPHOCYTES % 14.9 % (18.0-39.1); MEAN CORPUSCULAR HEMOGLOBIN 30.7 pg (28-32); MEAN CORPUSCULAR HGB CONC 31.7 g/dL (31-35); MEAN CORPUSCULAR VOLUME 96.9 fL (81-99); MONOCYTES % 12.5 % (4.4-11.3); NEUTROPHILS # (AUTO) 5.8 (2.1-6.9); NEUTROPHILS % 70.1 % (38.7-80.0); PLATELET COUNT 161 x10e3/uL (140-360); RED BLOOD COUNT 3.58 x10e6/uL (3.6-5.1); RED CELL DISTRIBUTION WIDTH 14.8 % (11.7-14.4)
[2022-07-12 10:29] LABS: ALBUMIN 3.9 g/dL (3.5-5.0); ALBUMIN/GLOBULIN RATIO 1.2 (0.8-2.0); CALCIUM 9.2 mg/dL (8.4-10.2); CREATININE, SERUM 1.9 mg/dL (0.57-1.11)
[2022-07-12] MEDS ORDERED: DOXYCYCLINE HYCLATE TABLET 100 MG TAB PO ONE (10:45)
[2022-07-12 11:46] LABS: ANION GAP 17.1 mmol/L (8-16); CALCIUM 9.3 mg/dL (8.4-10.2); CREATININE, SERUM 1.75 mg/dL (0.57-1.11)
[2022-07-12 11:49] LABS: POTASSIUM 7.1 mmol/L (3.5-5.1)
[2022-07-12] MEDS ORDERED: DEXTROSE 50% SYRINGE 50 ML IV STA (11:49)
[2022-07-12] MEDS ORDERED: ALBUTEROL SULF 0.083% NEB SOLN 3 ML NEB NEB STA (11:49)
[2022-07-12] MEDS ORDERED: SODIUM BICARBONATE 8.4% INJ 50 ML SYR IV STA (11:49)
[2022-07-12] MEDS ORDERED: SOD POLYSTYRENE SULFONATE SUSP 15 GM/60 ML BTL PO ONE (12:00)
[2022-07-12] MEDS ORDERED: INSULIN REGULAR, HUMAN 100 UNIT/1 ML IV ONE (12:00)
[2022-07-12] MEDS ORDERED: CALCIUM GLUCONATE 10% INJ 13.95 MEQ in SODIUM CHLORIDE 0.9% 100 ML IV ONE ×4 (12:00)
[2022-07-12] MEDS ORDERED: SODIUM CHLORIDE 0.9% 100 ML ONE (12:25)
[2022-07-12 16:29] VITALS: BP 120/38
[2022-07-12 16:38] VITALS: BP 120/38
[2022-07-12 16:39] VITALS: BP 120/38
[2022-07-12] MEDS ORDERED: TEMAZEPAM 15 MG CAP PO PRN (18:15)
[2022-07-12] MEDS ORDERED: HYDRALAZINE HCL 20 MG/ML VIAL IV PRN (18:15)
[2022-07-12] MEDS ORDERED: ONDANSETRON HCL INJ 2MG/ML 2ML 2 MG/ML VIAL IV PRN (18:15)
[2022-07-12] MEDS ORDERED: POLYETHYLENE GLYCOL 3350 17 GM PACK PO PRN (18:15)
[2022-07-12 18:37] LABS: CHOL/HDL RATIO 2.6 (3.0-3.6)
[2022-07-12 18:55] LABS: ANION GAP 17.9 mmol/L (8-16); CALCIUM 10.4 mg/dL (8.4-10.2); CREATININE, SERUM 1.66 mg/dL (0.57-1.11); POTASSIUM 5.9 mmol/L (3.5-5.1)
[2022-07-12 18:57] LABS: THYROID STIMULATING HORMONE 0.141 uIU/mL (0.350-4.940)
[2022-07-12] MEDS: ALBUTEROL SULF 0.083% NEB SOLN 3 ML NEB NEB SCH (19:00)
[2022-07-12] MEDS: IPRATROPIUM BROMIDE 0.02% 2.5 ML NEB NEB SCH (19:00)
[2022-07-12] MEDS ORDERED: FUROSEMIDE INJ 10 MG/ML 4 ML VIAL IV ONE (20:00)
[2022-07-12 20:19] VITALS: BP 107/43
[2022-07-12 21:45] VITALS: BP 128/48
[2022-07-13] VITALS (8 sets, daily range): BP systolic 84–115; BP diastolic 36–65
[2022-07-13] MEDS: GUAIFENESIN/CODEINE 5 ML LIQD PO PRN ×3 (00:13→22:30)
[2022-07-13] MEDS: ACETAMINOPHEN 325 MG TAB PO PRN ×2 (01:13→16:00)
[2022-07-13 05:35] LABS: BASOPHILS % 0.3 % (0.0-1.0); EOSINOPHILS % 0.2 % (0.0-6.0); HEMATOCRIT 28.7 % (34.2-44.1); HEMOGLOBIN 9.1 g/dL (12.0-16.0); LYMPHOCYTES # (AUTO) 1.4 (1.0-3.2); MEAN CORPUSCULAR HEMOGLOBIN 30.3 pg (28-32); MEAN CORPUSCULAR HGB CONC 31.7 g/dL (31-35); MEAN CORPUSCULAR VOLUME 95.7 fL (81-99); MONOCYTES # (AUTO) 1.1 (0.2-0.8); NEUTROPHILS % 61.3 % (38.7-80.0); PLATELET COUNT 134 x10e3/uL (140-360); RED CELL DISTRIBUTION WIDTH 14.6 % (11.7-14.4)
[2022-07-13 06:03] LABS: ANION GAP 12.9 mmol/L (8-16); CALCIUM 9.3 mg/dL (8.4-10.2); CREATININE, SERUM 1.51 mg/dL (0.57-1.11); POTASSIUM 4.9 mmol/L (3.5-5.1)
[2022-07-13] MEDS: ALBUTEROL SULF 0.083% NEB SOLN 3 ML NEB NEB SCH ×4 (06:30→18:50)
[2022-07-13] MEDS: IPRATROPIUM BROMIDE 0.02% 2.5 ML NEB NEB SCH ×4 (06:30→18:50)
[2022-07-13 07:24] LABS: LYMPHOCYTES % (MANUAL) 15 % (19-48); MONOCYTES % (MANUAL) 12 % (3.4-9.0); NEUTROPHILS % (MANUAL) 73 % (40-74)
[2022-07-13 07:25] LABS: PLATELET ESTIMATE SLIGHTLY DECREASED; PLATELET MORPHOLOGY COMMENT NORMAL; RBC MORPHOLOGY COMMENT NORMAL
[2022-07-13] MEDS: METOPROLOL SUCCINATE 25 MG TAB XL PO SCH (09:00)
[2022-07-13] MEDS ORDERED: LISINOPRIL 2.5 MG TAB PO SCH (09:00)
[2022-07-13] MEDS: FUROSEMIDE 40 MG TAB PO SCH ×2 (09:00→15:49)
[2022-07-13] MEDS: DOCUSATE SODIUM 100 MG CAP PO SCH ×2 (09:20→15:54)
[2022-07-13] MEDS: BENZONATATE 100 MG CAP PO SCH ×3 (09:21→22:22)
[2022-07-13] MEDS: DIGOXIN 0.125 MG TAB PO SCH (09:21)
[2022-07-13 09:31] LABS: INR 2.51; PROTHROMBIN TIME 27.5 seconds (11.9-14.5)
[2022-07-13] MEDS: LEVOTHYROXINE SODIUM 100 MCG TAB PO SCH (09:31)
[2022-07-13] MEDS: FAMOTIDINE 20 MG TAB PO SCH (15:50)
[2022-07-13] MEDS ORDERED: TIMOPTIC 0.5%1 EACH OU (17:28)
[2022-07-13] MEDS ORDERED: LEXAPRO10 MG PO (17:28)
[2022-07-13] MEDS ORDERED: CRESTOR10 MG PO (17:28)
[2022-07-13] MEDS ORDERED: BRIMONIDINE TART5 ML OP (17:28)
[2022-07-13] MEDS ORDERED: SPIRONOLACTONE25 MG PO (17:28)
[2022-07-13] MEDS: WARFARIN SOD 2 MG TAB PO SCH (17:33)
[2022-07-13 17:53] LABS: CLARITY,URINE SL CLOUDY (CLEAR); COLOR,URINE YELLOW (YELLOW); KETONES,URINE NEGATIVE (NEGATIVE); LEUKOCYTE ESTERASE ,URINE TRACE (NEGATIVE); NITRITE,URINE NEGATIVE (NEGATIVE); PROTEIN,URINE DIPSTICK 2+ (NEGATIVE); URINE UROBILINOGEN 0.2 mg/dL (0.2 - 1)
[2022-07-13 18:07] LABS: AMORPHOUS SEDIMENT,URINE MODERATE (FEW); BACTERIA,URINE MODERATE /HPF; RBC,URINE 21-50 /HPF (0-5)
[2022-07-13] MEDS: TEMAZEPAM 15 MG CAP PO SCH (22:22)
[2022-07-13] MEDS: SIMVASTATIN 20 MG TAB PO SCH (22:22)
[2022-07-13] MEDS: FUROSEMIDE 20 MG TAB PO SCH (22:30)
[2022-07-14] VITALS (8 sets, daily range): BP systolic 96–159; BP diastolic 48–70
[2022-07-14] MEDS: IPRATROPIUM BROMIDE 0.02% 2.5 ML NEB NEB SCH ×4 (03:20→19:20)
[2022-07-14] MEDS: ALBUTEROL SULF 0.083% NEB SOLN 3 ML NEB NEB SCH ×4 (03:20→19:20)
[2022-07-14] MEDS: LEVOTHYROXINE SODIUM 100 MCG TAB PO SCH (05:50)
[2022-07-14 06:05] LABS: BASOPHILS % 0.4 % (0.0-1.0); EOSINOPHILS # (AUTO) 0.1 (0.0-0.4); HEMOGLOBIN 9.3 g/dL (12.0-16.0); LYMPHOCYTES # (AUTO) 1.6 (1.0-3.2); LYMPHOCYTES % 19.6 % (18.0-39.1); MEAN CORPUSCULAR HEMOGLOBIN 30.9 pg (28-32); MEAN CORPUSCULAR HGB CONC 32.1 g/dL (31-35); MEAN CORPUSCULAR VOLUME 96.3 fL (81-99); MONOCYTES # (AUTO) 1.1 (0.2-0.8); NEUTROPHILS # (AUTO) 5.5 (2.1-6.9); NEUTROPHILS % 65.8 % (38.7-80.0); PLATELET COUNT 141 x10e3/uL (140-360); RED BLOOD COUNT 3.01 x10e6/uL (3.6-5.1); RED CELL DISTRIBUTION WIDTH 14.5 % (11.7-14.4)
[2022-07-14 06:42] LABS: ALBUMIN/GLOBULIN RATIO 1.1 (0.8-2.0); ANION GAP 14.2 mmol/L (8-16); CALCIUM 8.9 mg/dL (8.4-10.2); CREATININE, SERUM 1.27 mg/dL (0.57-1.11); POTASSIUM 4.2 mmol/L (3.5-5.1)
[2022-07-14] MEDS: METOPROLOL SUCCINATE 25 MG TAB XL PO SCH (09:00)
[2022-07-14 09:14] LABS: LYMPHOCYTES % (MANUAL) 20 % (19-48); MONOCYTES % (MANUAL) 19 % (3.4-9.0); NEUTROPHILS % (MANUAL) 60 % (40-74); PLATELET ESTIMATE ADEQUATE; PLATELET MORPHOLOGY COMMENT NORMAL; RBC MORPHOLOGY COMMENT NORMAL
[2022-07-14] MEDS ORDERED: METHYLPREDNISOLONE SOD SUCC 40 MG/ML VIAL 1ML IV ONE (09:15)
[2022-07-14] MEDS: ESCITALOPRAM OXALATE 10 MG TAB PO SCH (09:25)
[2022-07-14] MEDS: BENZONATATE 100 MG CAP PO SCH ×3 (09:25→21:00)
[2022-07-14] MEDS: DOCUSATE SODIUM 100 MG CAP PO SCH ×2 (09:25→17:00)
[2022-07-14] MEDS: DIGOXIN 0.125 MG TAB PO SCH (09:25)
[2022-07-14] MEDS: FAMOTIDINE 20 MG TAB PO SCH ×2 (09:25→17:26)
[2022-07-14] MEDS: FUROSEMIDE 20 MG TAB PO SCH (09:25)
[2022-07-14] MEDS ORDERED: ONDANSETRON HCL 4 MG ORAL DISINTEGRATING TAB PO PRN (11:00)
[2022-07-14] MEDS: WARFARIN SOD 2 MG TAB PO SCH (17:28)
[2022-07-14] MEDS: SIMVASTATIN 20 MG TAB PO SCH (21:00)
[2022-07-14] MEDS: TEMAZEPAM 15 MG CAP PO SCH (21:00)
[2022-07-14] MEDS ORDERED: ENTRESTO 24 MG1 EACH (22:12)
[2022-07-14] MEDS ORDERED: GLIPIZIDE5 MG PO (22:12)
[2022-07-15] VITALS (8 sets, daily range): BP systolic 96–125; BP diastolic 46–60
[2022-07-15] MEDS: IPRATROPIUM BROMIDE 0.02% 2.5 ML NEB NEB SCH ×4 (00:20→19:25)
[2022-07-15] MEDS: ALBUTEROL SULF 0.083% NEB SOLN 3 ML NEB NEB SCH ×4 (00:20→19:25)
[2022-07-15] MEDS: LEVOTHYROXINE SODIUM 100 MCG TAB PO SCH (06:05)
[2022-07-15] MEDS: GUAIFENESIN/CODEINE 5 ML LIQD PO PRN ×2 (06:14→14:40)
[2022-07-15 07:06] LABS: BASOPHILS % 0.2 % (0.0-1.0); HEMATOCRIT 29.2 % (34.2-44.1); HEMOGLOBIN 9.5 g/dL (12.0-16.0); LYMPHOCYTES % 16.5 % (18.0-39.1); MEAN CORPUSCULAR HEMOGLOBIN 30.4 pg (28-32); MEAN CORPUSCULAR HGB CONC 32.5 g/dL (31-35); MEAN CORPUSCULAR VOLUME 93.6 fL (81-99); MONOCYTES # (AUTO) 0.6 (0.2-0.8); MONOCYTES % 10.2 % (4.4-11.3); NEUTROPHILS # (AUTO) 4.4 (2.1-6.9); NEUTROPHILS % 72.6 % (38.7-80.0); PLATELET COUNT 155 x10e3/uL (140-360); RED BLOOD COUNT 3.12 x10e6/uL (3.6-5.1); RED CELL DISTRIBUTION WIDTH 13.8 % (11.7-14.4)
[2022-07-15 07:10] LABS: INR 3.11; PROTHROMBIN TIME 32.4 seconds (11.9-14.5)
[2022-07-15 07:23] LABS: ALBUMIN/GLOBULIN RATIO 0.9 (0.8-2.0); ANION GAP 13.3 mmol/L (8-16); CALCIUM 8.9 mg/dL (8.4-10.2); CREATININE, SERUM 0.97 mg/dL (0.57-1.11); POTASSIUM 4.3 mmol/L (3.5-5.1)
[2022-07-15] MEDS: DOCUSATE SODIUM 100 MG CAP PO SCH ×2 (09:00→17:00)
[2022-07-15] MEDS: FAMOTIDINE 20 MG TAB PO SCH ×2 (09:08→17:06)
[2022-07-15] MEDS: FUROSEMIDE 20 MG TAB PO SCH (09:08)
[2022-07-15] MEDS: BENZONATATE 100 MG CAP PO SCH ×3 (09:08→21:10)
[2022-07-15] MEDS: AZITHROMYCIN 250 MG TAB PO SCH (09:08)
[2022-07-15] MEDS: ESCITALOPRAM OXALATE 10 MG TAB PO SCH (09:08)
[2022-07-15] MEDS: METOPROLOL SUCCINATE 25 MG TAB XL PO SCH (09:09)
[2022-07-15] MEDS: DIGOXIN 0.125 MG TAB PO SCH (09:09)
[2022-07-15 10:44] LABS: LYMPHOCYTES % (MANUAL) 10 % (19-48); MONOCYTES % (MANUAL) 4 % (3.4-9.0); NEUTROPHILS % (MANUAL) 86 % (40-74); PLATELET ESTIMATE ADEQUATE; PLATELET MORPHOLOGY COMMENT NORMAL; RBC MORPHOLOGY COMMENT NORMAL
[2022-07-15] MEDS: WARFARIN SOD 2 MG TAB PO SCH (17:00)
[2022-07-15] MEDS: SIMVASTATIN 20 MG TAB PO SCH (21:09)
[2022-07-15] MEDS: TEMAZEPAM 15 MG CAP PO SCH (21:10)
[2022-07-15] MEDS: ACETAMINOPHEN 325 MG TAB PO PRN (21:51)
[2022-07-16] MEDS: IPRATROPIUM BROMIDE 0.02% 2.5 ML NEB NEB SCH ×4 (00:30→19:35)
[2022-07-16] MEDS: ALBUTEROL SULF 0.083% NEB SOLN 3 ML NEB NEB SCH ×4 (00:30→19:35)
[2022-07-16 01:12] VITALS: BP 120/72
[2022-07-16 06:00] VITALS: BP 104/52
[2022-07-16] MEDS: LEVOTHYROXINE SODIUM 100 MCG TAB PO SCH (06:05)
[2022-07-16 07:34] VITALS: BP 113/51
[2022-07-16 08:24] VITALS: BP 113/51
[2022-07-16] MEDS: BENZONATATE 100 MG CAP PO SCH ×3 (08:32→20:57)
[2022-07-16] MEDS: DOCUSATE SODIUM 100 MG CAP PO SCH ×2 (08:32→16:59)
[2022-07-16] MEDS: AZITHROMYCIN 250 MG TAB PO SCH (08:32)
[2022-07-16] MEDS: DIGOXIN 0.125 MG TAB PO SCH (08:32)
[2022-07-16] MEDS: FAMOTIDINE 20 MG TAB PO SCH ×2 (08:33→16:59)
[2022-07-16] MEDS: FUROSEMIDE 20 MG TAB PO SCH (08:33)
[2022-07-16] MEDS: ESCITALOPRAM OXALATE 10 MG TAB PO SCH (08:33)
[2022-07-16] MEDS: METOPROLOL SUCCINATE 25 MG TAB XL PO SCH (08:33)
[2022-07-16 12:04] VITALS: BP 96/64
[2022-07-16] MEDS: GUAIFENESIN/CODEINE 5 ML LIQD PO PRN (14:00)
[2022-07-16 15:00] LABS: INR 3.41; PROTHROMBIN TIME 34.7 seconds (11.9-14.5)
[2022-07-16] MEDS: ACETAMINOPHEN 325 MG TAB PO PRN (15:19)
[2022-07-16 16:12] VITALS: BP 113/49
[2022-07-16] MEDS: SIMVASTATIN 20 MG TAB PO SCH (20:57)
[2022-07-16] MEDS: TEMAZEPAM 15 MG CAP PO SCH (20:57)
[2022-07-17] VITALS (7 sets, daily range): BP systolic 104–125; BP diastolic 45–74
[2022-07-17] MEDS: ALBUTEROL SULF 0.083% NEB SOLN 3 ML NEB NEB SCH ×4 (01:00→19:15)
[2022-07-17] MEDS: IPRATROPIUM BROMIDE 0.02% 2.5 ML NEB NEB SCH ×4 (01:00→19:15)
[2022-07-17] MEDS: LEVOTHYROXINE SODIUM 100 MCG TAB PO SCH (05:40)
[2022-07-17] MEDS: DOCUSATE SODIUM 100 MG CAP PO SCH ×2 (08:53→17:15)
[2022-07-17] MEDS: FAMOTIDINE 20 MG TAB PO SCH ×2 (08:53→17:15)
[2022-07-17] MEDS: BENZONATATE 100 MG CAP PO SCH ×3 (08:54→20:08)
[2022-07-17] MEDS: METOPROLOL SUCCINATE 25 MG TAB XL PO SCH (08:54)
[2022-07-17] MEDS: ESCITALOPRAM OXALATE 10 MG TAB PO SCH (08:54)
[2022-07-17] MEDS: DIGOXIN 0.125 MG TAB PO SCH (08:54)
[2022-07-17] MEDS: FUROSEMIDE 20 MG TAB PO SCH (08:54)
[2022-07-17] MEDS: AZITHROMYCIN 250 MG TAB PO SCH (08:54)
[2022-07-17] MEDS: TEMAZEPAM 15 MG CAP PO SCH (20:07)
[2022-07-17] MEDS: SIMVASTATIN 20 MG TAB PO SCH (20:08)
[2022-07-18] VITALS (8 sets, daily range): BP systolic 99–116; BP diastolic 46–87
[2022-07-18] MEDS: ALBUTEROL SULF 0.083% NEB SOLN 3 ML NEB NEB SCH ×4 (01:00→19:20)
[2022-07-18] MEDS: IPRATROPIUM BROMIDE 0.02% 2.5 ML NEB NEB SCH ×4 (01:00→19:20)
[2022-07-18] MEDS: LEVOTHYROXINE SODIUM 100 MCG TAB PO SCH (04:58)
[2022-07-18] MEDS: BENZONATATE 100 MG CAP PO SCH ×3 (09:00→21:00)
[2022-07-18] MEDS: FAMOTIDINE 20 MG TAB PO SCH ×2 (09:35→16:59)
[2022-07-18] MEDS: FUROSEMIDE 20 MG TAB PO SCH (09:36)
[2022-07-18] MEDS: AZITHROMYCIN 250 MG TAB PO SCH (09:36)
[2022-07-18] MEDS: DOCUSATE SODIUM 100 MG CAP PO SCH ×2 (09:36→16:59)
[2022-07-18] MEDS: DIGOXIN 0.125 MG TAB PO SCH (09:36)
[2022-07-18] MEDS: ESCITALOPRAM OXALATE 10 MG TAB PO SCH (09:37)
[2022-07-18] MEDS: METOPROLOL SUCCINATE 25 MG TAB XL PO SCH (09:37)
[2022-07-18] MEDS: GUAIFENESIN/CODEINE 5 ML LIQD PO PRN ×2 (09:39→23:04)
[2022-07-18 11:43] LABS: BASOPHILS % 0.3 % (0.0-1.0); EOSINOPHILS # (AUTO) 0.2 (0.0-0.4); EOSINOPHILS % 1.9 % (0.0-6.0); HEMATOCRIT 34.2 % (34.2-44.1); LYMPHOCYTES # (AUTO) 1.5 (1.0-3.2); MEAN CORPUSCULAR HEMOGLOBIN 30.7 pg (28-32); MEAN CORPUSCULAR HGB CONC 32.2 g/dL (31-35); MEAN CORPUSCULAR VOLUME 95.5 fL (81-99); MONOCYTES # (AUTO) 1.1 (0.2-0.8); MONOCYTES % 9.2 % (4.4-11.3); NEUTROPHILS # (AUTO) 8.9 (2.1-6.9); NEUTROPHILS % 74.8 % (38.7-80.0); PLATELET COUNT 234 x10e3/uL (140-360); RED BLOOD COUNT 3.58 x10e6/uL (3.6-5.1); RED CELL DISTRIBUTION WIDTH 13.5 % (11.7-14.4)
[2022-07-18 11:55] LABS: INR 1.98
[2022-07-18 12:02] LABS: ANION GAP 14.2 mmol/L (8-16); CALCIUM 9.4 mg/dL (8.4-10.2); CREATININE, SERUM 0.74 mg/dL (0.57-1.11); POTASSIUM 4.2 mmol/L (3.5-5.1)
[2022-07-18] MEDS ORDERED: FUROSEMIDE INJ 10 MG/ML 4 ML VIAL IV ONE (13:15)
[2022-07-18] MEDS ORDERED: METHYLPREDNISOLONE SOD SUCC 40 MG/ML VIAL 1ML IV ONE (13:15)
[2022-07-18] MEDS ORDERED: CEPACOL SORE THROAT LOZENGES PO ONE (16:30)
[2022-07-18] MEDS ORDERED: CEPACOL SORE THROAT LOZENGES PO PRN (16:30)
[2022-07-18] MEDS: POLYETHYLENE GLYCOL 3350 17 GM PACK PO SCH (17:02)
[2022-07-18] MEDS: TEMAZEPAM 15 MG CAP PO SCH (23:04)
[2022-07-18] MEDS: SIMVASTATIN 20 MG TAB PO SCH (23:05)
[2022-07-19] MEDS: ALBUTEROL SULF 0.083% NEB SOLN 3 ML NEB NEB SCH ×4 (01:00→19:45)
[2022-07-19] MEDS: IPRATROPIUM BROMIDE 0.02% 2.5 ML NEB NEB SCH ×4 (01:00→19:45)
[2022-07-19] MEDS: LEVOTHYROXINE SODIUM 100 MCG TAB PO SCH (06:34)
[2022-07-19 07:20] LABS: BASOPHILS % 0.1 % (0.0-1.0); EOSINOPHILS % 0.1 % (0.0-6.0); HEMOGLOBIN 10.4 g/dL (12.0-16.0); LYMPHOCYTES # (AUTO) 1.1 (1.0-3.2); LYMPHOCYTES % 9.4 % (18.0-39.1); MEAN CORPUSCULAR HEMOGLOBIN 30.3 pg (28-32); MEAN CORPUSCULAR HGB CONC 32.5 g/dL (31-35); MEAN CORPUSCULAR VOLUME 93.3 fL (81-99); MONOCYTES % 8.7 % (4.4-11.3); NEUTROPHILS # (AUTO) 9.3 (2.1-6.9); NEUTROPHILS % 81.1 % (38.7-80.0); PLATELET COUNT 248 x10e3/uL (140-360); RED BLOOD COUNT 3.43 x10e6/uL (3.6-5.1); RED CELL DISTRIBUTION WIDTH 13.2 % (11.7-14.4)
[2022-07-19 07:49] LABS: ALBUMIN 2.8 g/dL (3.5-5.0); ALBUMIN/GLOBULIN RATIO 0.8 (0.8-2.0); ANION GAP 14.2 mmol/L (8-16); CALCIUM 8.8 mg/dL (8.4-10.2); CREATININE, SERUM 0.75 mg/dL (0.57-1.11); POTASSIUM 4.2 mmol/L (3.5-5.1)
[2022-07-19 08:00] VITALS: BP 96/44
[2022-07-19 08:33] VITALS: BP 96/44
[2022-07-19] MEDS: METOPROLOL SUCCINATE 25 MG TAB XL PO SCH (09:00)
[2022-07-19] MEDS: POLYETHYLENE GLYCOL 3350 17 GM PACK PO SCH ×2 (09:00→17:00)
[2022-07-19] MEDS: DOCUSATE SODIUM 100 MG CAP PO SCH ×2 (09:00→17:00)
[2022-07-19] MEDS: ESCITALOPRAM OXALATE 10 MG TAB PO SCH (09:32)
[2022-07-19] MEDS: AZITHROMYCIN 250 MG TAB PO SCH (09:32)
[2022-07-19] MEDS: FUROSEMIDE 20 MG TAB PO SCH (09:32)
[2022-07-19] MEDS: DIGOXIN 0.125 MG TAB PO SCH (09:32)
[2022-07-19] MEDS: BENZONATATE 100 MG CAP PO SCH ×2 (09:33→14:35)
[2022-07-19] MEDS: FAMOTIDINE 20 MG TAB PO SCH ×2 (09:33→17:14)
[2022-07-19 12:00] VITALS: BP 92/35
[2022-07-19] MEDS ORDERED: SODIUM CHLORIDE 0.9% 500ML 500 ML IV ONE (15:15)
[2022-07-19] MEDS ORDERED: METHYLPREDNISOLONE SOD SUCC 40 MG/ML VIAL 1ML IV ONE (15:30)
[2022-07-19 16:00] VITALS: BP 117/88
[2022-07-19 16:12] LABS: INR 1.54
[2022-07-19] MEDS ORDERED: WARFARIN SOD 1 MG TAB PO SCH (17:00)
== END 2022-07-19 21:37 | DRG 871 ==
LOC: ER 09:47 → ERHOLD 12:36 → MED/SURG3 16:15 → OBSVTOIN 07-14 08:28
PROVIDERS: ADMIT Internal Medicine; ATTEND Internal Medicine
DX: A41.9 Sepsis, unspecified organism (principal); E43 Unspecified severe protein-calorie malnutrition; J18.9 Pneumonia, unspecified organism; N17.9 Acute kidney failure, unspecified; I50.32 Chronic diastolic (congestive) heart failure; N39.0 Urinary tract infection, site not specified; E87.5 Hyperkalemia; I25.10 Atherosclerotic heart disease of native coronary artery without angina pectoris; E03.9 Hypothyroidism, unspecified; E11.22 Type 2 diabetes mellitus with diabetic chronic kidney disease; Z79.4 Long term (current) use of insulin; T50.0X5A Adverse effect of mineralocorticoids and their antagonists, initial encounter; E11.65 Type 2 diabetes mellitus with hyperglycemia; Z66 Do not resuscitate; Z95.810 Presence of automatic (implantable) cardiac defibrillator; N18.30 Chronic kidney disease, stage 3 unspecified; Z68.23 Body mass index [BMI] 23.0-23.9, adult; I11.0 Hypertensive heart disease with heart failure; Z20.822 Contact with and (suspected) exposure to COVID-19
CPT/HCPCS: 36415; 71045; 71046; 71250; 74230; 80048; 80053; 80061; 80162; 81001; 82948; 83036; 83605; 84443; 85025; 85610; 87040; 93005; 93306; 94640; 94799; 96360; 99252; 99285; G0378; J0610; J0696; J1940; J2920; J7050; J7799

== ENCOUNTER 2024-05-03 08:15 | Inpatient (IN) | payer MEDICARE ==
[~2024-05-03] VITALS: Ht 157.5 cm; Wt 57.6 kg
[~2024-05-03 08:15] MED LIST changes: +BRIMONIDINE TART5 ML OP; +CRESTOR10 MG PO; +ENTRESTO 24 MG1 EACH; +GLIPIZIDE5 MG PO; +LEXAPRO10 MG PO; +SPIRONOLACTONE25 MG PO; +TIMOPTIC 0.5%1 EACH OU
[2024-05-03 08:39] LABS: BASOPHILS % 0.5 % (0.0-1.0); EOSINOPHILS # (AUTO) 0.2 (0.0-0.4); EOSINOPHILS % 1.8 % (0.0-6.0); HEMATOCRIT 34.6 % (34.2-44.1); HEMOGLOBIN 10.8 g/dL (12.0-16.0); LYMPHOCYTES # (AUTO) 1.6 (1.0-3.2); LYMPHOCYTES % 19.1 % (18.0-39.1); MEAN CORPUSCULAR HEMOGLOBIN 30.5 pg (28-32); MEAN CORPUSCULAR HGB CONC 31.2 g/dL (31-35); MEAN CORPUSCULAR VOLUME 97.7 fL (81-99); MONOCYTES # (AUTO) 0.9 (0.2-0.8); MONOCYTES % 10.5 % (4.4-11.3); NEUTROPHILS # (AUTO) 5.6 (2.1-6.9); NEUTROPHILS % 67.7 % (38.7-80.0); PLATELET COUNT 148 x10e3/uL (140-360); RED BLOOD COUNT 3.54 x10e6/uL (3.6-5.1); RED CELL DISTRIBUTION WIDTH 14.1 % (11.7-14.4); WHITE BLOOD COUNT 8.28 x10e3/uL (4.8-10.8)
[2024-05-03] MEDS ORDERED: DOCUSATE SODIU100 MG PO (08:40)
[2024-05-03] MEDS ORDERED: BUMETANIDE1 MG PO (08:40)
[2024-05-03] MEDS ORDERED: XARELTO10 MG PO (08:40)
[2024-05-03] MEDS ORDERED: LEVOTHYROXINE88 MCG PO (08:40)
[2024-05-03] MEDS ORDERED: VENTOLIN HFA18 GM INH (08:40)
[2024-05-03] MEDS ORDERED: BRIMONIDINE TART5 ML OP (08:41)
[2024-05-03] MEDS ORDERED: ALBUTEROL0.63 MG/3 NEB (08:41)
[2024-05-03] MEDS ORDERED: SODIUM CHLORIDE FLUSH 10 ML SYR IV PRN (08:45)
[2024-05-03 08:55] LABS: ALBUMIN 3.8 g/dL (3.5-5.0); ALBUMIN/GLOBULIN RATIO 1.4 (0.8-2.0); ANION GAP 16.3 mmol/L (8-16); BILIRUBIN,TOTAL 0.7 mg/dL (0.2-1.2); CALCIUM 9.3 mg/dL (8.4-10.2); CREATININE, SERUM 1.34 mg/dL (0.57-1.11); POTASSIUM 4.3 mmol/L (3.5-5.1); TOTAL PROTEIN 6.6 g/dL (6.5-8.1)
[2024-05-03 09:00] LABS: TROPONIN I 0.03 ng/mL (0-0.300)
[2024-05-03] MEDS ORDERED: ONDANSETRON HCL INJ 2MG/ML 2ML 2 MG/ML VIAL IV PRN (10:00)
[2024-05-03 10:26] VITALS: PULSE 71; RESP 15; TEMP 98.1
[2024-05-03 11:27] VITALS: BP 105/44; PULSE 70; RESP 20; TEMP 98; O2SAT 100
[2024-05-03 11:35] VITALS: BP 105/44; PULSE 70; RESP 20; TEMP 98; O2SAT 100
[2024-05-03 11:56] VITALS: BP 105/44; PULSE 69; RESP 18; TEMP 98; O2SAT 100
[2024-05-03] MEDS: BUMETANIDE INJ 0.25MG/ML 4ML VIAL IV SCH (15:17)
[2024-05-03 15:48] VITALS: BP 107/51; PULSE 70; RESP 18; TEMP 98.1; O2SAT 100
[2024-05-03] MEDS ORDERED: ALBUTEROL/IPRATROPIUM 3 ML NEB NEB PRN (19:15)
[2024-05-03] MEDS ORDERED: METOPROLOL TARTRATE INJ 1 MG/ML VIAL IV PRN (19:15)
[2024-05-03] MEDS ORDERED: ACETAMINOPHEN 325 MG TAB PO PRN (19:15)
[2024-05-03] MEDS ORDERED: SIMETHICONE 80 MG CHEW PO PRN (19:15)
[2024-05-03] MEDS ORDERED: MELATONIN 3 MG TAB PO PRN (19:15)
[2024-05-03] MEDS ORDERED: DEXTROSE 50% SYRINGE 50 ML IV PRN (19:30)
[2024-05-03] MEDS: INSULIN REGULAR, HUMAN 100 UNIT/1 ML SQ SCH (21:00)
[2024-05-04] VITALS (7 sets, daily range): BP systolic 85–114; BP diastolic 33–55; PULSE 70–71; RESP 16–18; TEMP 97.4–98.2; O2SAT 96–100
[2024-05-04 00:16] LABS: CHOL/HDL RATIO 2.6 (3.0-3.6)
[2024-05-04 00:22] LABS: TROPONIN I 0.034 ng/mL (0-0.300)
[2024-05-04 05:52] LABS: BASOPHILS % 0.3 % (0.0-1.0); EOSINOPHILS # (AUTO) 0.2 (0.0-0.4); HEMOGLOBIN 10.8 g/dL (12.0-16.0); LYMPHOCYTES # (AUTO) 1.8 (1.0-3.2); LYMPHOCYTES % 23.9 % (18.0-39.1); MEAN CORPUSCULAR HEMOGLOBIN 29.8 pg (28-32); MEAN CORPUSCULAR HGB CONC 30.9 g/dL (31-35); MEAN CORPUSCULAR VOLUME 96.7 fL (81-99); MONOCYTES # (AUTO) 0.9 (0.2-0.8); MONOCYTES % 11.5 % (4.4-11.3); NEUTROPHILS # (AUTO) 4.6 (2.1-6.9); PLATELET COUNT 141 x10e3/uL (140-360); RED BLOOD COUNT 3.62 x10e6/uL (3.6-5.1); RED CELL DISTRIBUTION WIDTH 14.1 % (11.7-14.4); WHITE BLOOD COUNT 7.45 x10e3/uL (4.8-10.8)
[2024-05-04 06:14] LABS: ALBUMIN 3.9 g/dL (3.5-5.0); ALBUMIN/GLOBULIN RATIO 1.4 (0.8-2.0); BILIRUBIN,TOTAL 0.5 mg/dL (0.2-1.2); CALCIUM 9.3 mg/dL (8.4-10.2); CREATININE, SERUM 1.14 mg/dL (0.57-1.11); TOTAL PROTEIN 6.7 g/dL (6.5-8.1)
[2024-05-04 06:39] LABS: TROPONIN I 0.04 ng/mL (0-0.300)
[2024-05-04] MEDS ORDERED: SIMVASTATIN 40 MG TAB PO SCH (09:00)
[2024-05-04] MEDS ORDERED: METOPROLOL SUCCINATE 25 MG TAB XL PO SCH (09:00)
[2024-05-04] MEDS: METOPROLOL SUCCINATE 25 MG TAB XL PO SCH (09:06)
[2024-05-04] MEDS: SENNOSIDES 8.6 MG TAB PO SCH (09:06)
[2024-05-04] MEDS: DIGOXIN 0.125 MG TAB PO SCH (09:06)
[2024-05-04] MEDS: LEVOTHYROXINE SODIUM 88 MCG TAB PO SCH (09:06)
[2024-05-04] MEDS: DOCUSATE SODIUM 100 MG CAP PO SCH (09:07)
[2024-05-04] MEDS: SACUBITRIL/VALSARTAN 24MG/26MG 1 EA TAB PO SCH (10:00)
[2024-05-04] MEDS: RIVAROXABAN 15 MG TABLET PO SCH (16:32)
[2024-05-04] MEDS: BUMETANIDE INJ 0.25MG/ML 4ML VIAL IV SCH (21:00)
[2024-05-05] VITALS (9 sets, daily range): BP systolic 70–124; BP diastolic 36–62; PULSE 69–91; RESP 17–18; TEMP 97.3–97.9; O2SAT 97–100
[2024-05-05] MEDS: MIDODRINE HCL 5 MG TABLET ONE (01:05)
[2024-05-05 05:54] LABS: TROPONIN I 0.03 ng/mL (0-0.300)
[2024-05-05] MEDS: LEVOTHYROXINE SODIUM 88 MCG TAB PO SCH (05:55)
[2024-05-05] MEDS: SIMVASTATIN 40 MG TAB PO SCH (08:58)
[2024-05-05] MEDS: MIDODRINE HCL 5 MG TABLET PO SCH ×2 (08:59→12:13)
[2024-05-05 10:02] LABS: CALCIUM 9.2 mg/dL (8.4-10.2); CREATININE, SERUM 1.07 mg/dL (0.57-1.11)
[2024-05-05] MEDS ORDERED: MIDODRINE HCL 5 MG TABLET PO SCH (12:00)
[2024-05-05] MEDS: BUMETANIDE INJ 0.25MG/ML 4ML VIAL IV SCH (21:34)
[2024-05-06] VITALS (9 sets, daily range): BP systolic 94–119; BP diastolic 51–64; PULSE 69–70; RESP 17–19; TEMP 97.1–98.2; O2SAT 96–100
[2024-05-06] MEDS ORDERED: ONDANSETRON HCL 4 MG ORAL DISINTEGRATING TAB PO PRN (12:30)
[2024-05-06] MEDS: DOCUSATE SODIUM 100 MG CAP PO PRN (12:30)
[2024-05-06] MEDS ORDERED: MECLIZINE HCL 12.5 MG TAB PO SCH (22:00)
[2024-05-06] MEDS: MECLIZINE HCL 12.5 MG TAB PO SCH (22:03)
[2024-05-07 03:35] VITALS: BP 103/53; PULSE 71; RESP 18; TEMP 97.6; O2SAT 99
[2024-05-07 07:39] VITALS: BP 99/53; PULSE 70; RESP 18; TEMP 97.5; O2SAT 97
[2024-05-07] MEDS ORDERED: SENOKOT8.6 MG PO (10:40)
[2024-05-07] MEDS ORDERED: MIDODRINE HCL5 MG PO (10:40)
[2024-05-07] MEDS ORDERED: MECLIZINE HCL12.5 MG PO (10:40)
[2024-05-07] MEDS ORDERED: BUMETANIDE0.5 MG PO (10:40)
[2024-05-07 11:04] VITALS: BP 99/53; PULSE 70; RESP 18; TEMP 97.5; O2SAT 97
[2024-05-07 11:20] VITALS: BP 124/63; PULSE 75; RESP 16; TEMP 98.6; O2SAT 100
== END 2024-05-07 13:29 | disposition home or self-care (01) | DRG 291 ==
LOC: ER 08:31 → ERHOLD 09:59 → MED/SURG3 11:00 → OBSVTOIN 05-04 09:08
PROVIDERS: ADMIT Internal Medicine; ATTEND Internal Medicine
DX: I11.0 Hypertensive heart disease with heart failure (principal); I50.23 Acute on chronic systolic (congestive) heart failure; N17.9 Acute kidney failure, unspecified; I48.20 Chronic atrial fibrillation, unspecified; E11.9 Type 2 diabetes mellitus without complications; E03.9 Hypothyroidism, unspecified; I25.10 Atherosclerotic heart disease of native coronary artery without angina pectoris; I95.9 Hypotension, unspecified; I34.0 Nonrheumatic mitral (valve) insufficiency; E78.5 Hyperlipidemia, unspecified; R06.02 Shortness of breath; Z79.84 Long term (current) use of oral hypoglycemic drugs; Z79.01 Long term (current) use of anticoagulants; Z79.890 Hormone replacement therapy; Z95.810 Presence of automatic (implantable) cardiac defibrillator; Z88.8 Allergy status to other drugs, medicaments and biological substances
CPT/HCPCS: 36415; 70450; 71045; 80048; 80053; 80061; 82550; 82948; 83036; 83880; 84484; 85025; 93005; 93306; 94799; 96372; 99284; G0378